=== PATIENT | male | born 1980 | race Caucasian/White ===

== ENCOUNTER 2019-04-28 13:23 | Emergency (ER) | payer BC ==
[2019-04-28 13:36] VITALS: BP 125/82
--- NOTE | 2019-04-28 13:38 | UC ---
Skin Complaint HPI - HPI Summary HPI Summary: 38 yo male presents with rash to right leg for the last 2 weeks. He tells me that about 3-4 weeks ago he had some itching to the area and scratched off a bug behind his right knee. 2 weeks ago developed a small red circular rash at the site. Since that time the area has significantly increased in size now encompassing his distal thigh and mid calf. No pain, but mildly itchy. Over the last 2-3 days has been feeling muscle aches and fatigued. He is concerned for lyme. Denies fever, chills, abdominal pain, n/v. - History of Current Complaint Chief Complaint: UCRash Time Seen by Provider: 04/28/19 13:38 Stated Complaint: TICK Hx Obtained From: Patient Onset/Duration: Gradual Onset Onset Severity: Mild Current Severity: Moderate Pain Intensity: 5 Pain Scale Used: 0-10 Numeric - Allergy/Home Medications Allergies/Adverse Reactions: Allergies Allergy/AdvReac Type Severity Reaction Status Date / Time No Known Allergies Allergy Verified 04/28/19 13:37 PMH/Surg Hx/FS Hx/Imm Hx - Additional Past Medical History Additional PMH: None - Surgical History Surgical History: Yes Surgery Procedure, Year, and Place: hand surgery - Family History Family History: ESOPHAGEAL CANCER - BROTHER - Social History Occupation: Employed Full-time Lives: With Family Alcohol Use: Occasionally Substance Use Type: None Smoking Status (MU): Former Smoker Type: Cigars, Smokeless Tobacco Amount Used/How Often: quit late november 2015 Review of Systems All Other Systems Reviewed And Are Negative: Yes Constitutional: Positive: Fatigue, Other - Body aches Skin: Positive: Rash Eyes: Positive: Negative ENT: Positive: Negative Respiratory: Positive: Negative Cardiovascular: Positive: Negative Gastrointestinal: Positive: Negative Genitourinary: Positive: Negative Neurological: Positive: Negative Psychological: Positive: Negative Physical Exam - Summary Physical Exam Summary: GENERAL: NAD. WDWN. No pain distress. SKIN: RIGHT LEG: Proximal posterior calf with 2.0cm area of erythema with central clearing with surrounding erythema extending to distal posterior thigh and mid posterior calf. No abscess, induration, or fluctuance. NECK: Supple. Nontender. No lymphadenopathy. CHEST: No accessory muscle use. Breathing comfortably and in no distress. CV: Pulses intact. Cap refill <2seconds NEURO: Alert. PSYCH: Age appropriate behavior. Triage Information Reviewed: Yes Vital Signs: Initial Vital Signs Temp 98.9 F 04/28/19 13:34 Pulse 84 04/28/19 13:34 Resp 16 04/28/19 13:34 BP 125/82 04/28/19 13:34 Pulse Ox 99 04/28/19 13:34 Vital Signs Reviewed: Yes Course/Dx - Course Course Of Treatment: Bull's Eye rash with possible tick bite prior. Symptoms now with fatigue and body aches. Exam and history are consistent with lyme, therefore will treat with doxycycline. F/u if symptoms do not improve - Diagnoses Provider Diagnosis: Lyme disease Discharge - Sign-Out/Discharge Documenting (check all that apply): Patient Departure All imaging exams completed and their final reports reviewed: No Studies - Discharge Plan Condition: Stable Disposition: HOME Prescriptions: DOXYcycline CAP(*) [DOXYcycline 100MG CAP(*)] 100 mg PO BID #42 cap Patient Education Materials: Doxycycline (By mouth), Lyme Disease (ED), Tick Bite (ED) Referrals: No Primary Care Phys,NOPCP [Primary Care Provider] - Additional Instructions: If you develop a fever, shortness of breath, chest pain, new or worsening symptoms - please call your PCP or go to the ED immediately. - Billing Disposition and Condition Condition: STABLE Disposition: Home
== END 2019-04-28 13:50 | disposition home or self-care (01) ==
LOC: UCEAST 13:23
DX: A69.20 Lyme disease, unspecified (principal); Z87.891 Personal history of nicotine dependence
CPT/HCPCS: 99202; G0463